=== PATIENT | female | born 1955 | race Two or more races ===

== ENCOUNTER 2022-07-04 19:35 | Emergency (ER) | payer BC, OTHER ==
[~2022-07-04] VITALS: Ht 147.3 cm; Wt 59.9 kg
[2022-07-04 19:50] VITALS: BP 120/78
--- NOTE | 2022-07-04 21:25 | NUR ---
Patient takent to bed 7 via WC.
--- NOTE | 2022-07-04 21:32 | NUR ---
RECEIVED IN [id number] C/O right groin pain x 3 days. Patient reported, had right groin pain for 3 days and swelling, no fever. PMHx: Artritis
[2022-07-04] MEDS ORDERED: NACL 0.9% 1,000 ML IV SCH (22:50)
[2022-07-04] MEDS ORDERED: ONDANSETRON 4 MG/2 ML VIAL IVP ONE (22:50)
[2022-07-04] MEDS ORDERED: cefTRIAXone 2,000 MG in DEXTROSE 5% 100 ML IV ONE (22:50)
[2022-07-04] MEDS ORDERED: MORPHINE SULFATE 2 MG/ML SYR IVP ONE (22:50)
[2022-07-04] MEDS ORDERED: cefTRIAXone 2,000 MG VIAL ONE (23:08)
[2022-07-04 23:14] LABS: BASOPHILS % (AUTO) 0.5 % (0.0-2.0); EOSINOPHILS # (AUTO) 0.2 K/uL (0-0.4); HEMATOCRIT 39.7 % (36-48); HEMOGLOBIN 13.4 g/dL (12.0-16.0); LYMPHOCYTES # (AUTO) 2.1 K/uL (2.5-16.5); LYMPHOCYTES % (AUTO) 27.5 % (20.5-51.1); MEAN CORPUSCULAR HEMOGLOBIN 31 pg (27-31); MEAN CORPUSCULAR HGB CONC 34 g/dL (33-37); MEAN CORPUSCULAR VOLUME 91.5 fL (80-94); MONOCYTES # (AUTO) 0.8 K/uL (0.8-1.0); NEUTROPHILS # (AUTO) 4.7 K/uL (1.8-7.7); PLATELET COUNT (AUTO) 190 K/uL (140-450); RED BLOOD CELL COUNT(AUTO) 4.34 MIL/uL (4.20-5.40); RED CELL DISTRIBUTION WIDTH 14.5 % (11.6-13.7); WHITE BLOOD COUNT (AUTO) 7.8 K/uL (4.8-10.8)
--- NOTE | 2022-07-04 23:15 | NUR ---
IV ESTABLISHED, LABS DRAWN, MEDICATED ORDERED
[2022-07-04 23:24] LABS: ALBUMIN 3.5 g/dL (3.4-5.0); ANION GAP 12.1 (8-16); CARBON DIOXIDE 28.7 mmol/L (21-32); CREATININE 0.9 mg/dL (0.6-1.3); POTASSIUM 3.8 mmol/L (3.5-5.1); TOTAL BILIRUBIN 0.4 mg/dL (0.0-1.0)
--- NOTE | 2022-07-05 00:09 | NUR ---
AMBULATED TO BR
[2022-07-05] MEDS ORDERED: methylPREDNISolone SS 125 MG/2 ML VIAL IVP ONE (00:20)
[2022-07-05] MEDS ORDERED: diphenhydrAMINE 50 MG/ML VIAL IVP ONE (00:20)
[2022-07-05 00:24] LABS: APPEARANCE,URINE CLEAR (CLEAR); BILIRUBIN,URINE NEGATIVE (NEGATIVE); BLOOD, URINE NEGATIVE (NEGATIVE); COLOR,URINE YELLOW (YELLOW); LEUKOCYTE ESTERASE ,URINE NEGATIVE (NEGATIVE); NITRITE, URINE POSITIVE (NEGATIVE); UGLUCOSE NEGATIVE (NEGATIVE)
[2022-07-05 00:33] LABS: RBC,URINE 0-5 /HPF (0-5); WBC,URINE 0-5 /HPF (0-5)
[2022-07-05] MEDS ORDERED: CEPH-588 PO (02:18)
[2022-07-05 02:50] VITALS: BP 120/78
== END 2022-07-05 02:50 | disposition home or self-care (01) ==
LOC: MED 19:35
DX: N39.0 Urinary tract infection, site not specified (principal); Z20.822 Contact with and (suspected) exposure to COVID-19; R11.2 Nausea with vomiting, unspecified; Z79.899 Other long term (current) drug therapy
CPT/HCPCS: 36415; 74177; 80053; 81001; 83605; 85025; 87040; 87086; 87426; 87804; 96365; 96375; 99285; J0696; J1200; J2270; J2405; J2930; Q9967